=== PATIENT | female | born 1960 | race Caucasian/White ===

== ENCOUNTER 2017-11-04 08:56 | Day surgery (SDC) | payer BC ==
[2017-11-03 10:47] VITALS: BMI 29.5
[~2017-11-04 08:56] MED LIST: LACTATED RINGERS 1,000 ML IV SCH
[2017-11-04] MEDS ORDERED: LIDOCAINE 1% 20 ML VIAL (10MG/ML) FOR IV START INTRADERMA ONE (09:17)
[2017-11-04 09:26] VITALS: RESP 16; TEMP 98.6
[2017-11-04] MEDS ORDERED: GLYCOPYRROLATE 0.2 MG/ML 2 ML VIAL ONE (09:40)
[2017-11-04] MEDS ORDERED: PROPOFOL 10 MG/ML 20 ML VIAL IV ONE (09:40)
[2017-11-04] MEDS ORDERED: LIDOCAINE 1% INJ 10MG/ML (20 ML MDV) ONE (09:40)
--- NOTE | 2017-11-04 09:43 | P.GSHP ---
History of Present Illness H&P Date: 11/04/17 Chief Complaint: GERD This a 56-year-old female referred from Dr. Adam. Patient segments of GERD. She does today for EGD. She has a known history of a hiatal hernia. Her last EGD was over 5 years ago. Past Medical History Past Medical History: Asthma, GERD/Reflux, Hypertension Additional Past Medical History / Comment(s): spouse states "stomach problems" History of Any Multi-Drug Resistant Organisms: None Reported Past Surgical History: Uterine Ablation Additional Past Surgical History / Comment(s): nasal reconstruction Past Anesthesia/Blood Transfusion Reactions: No Reported Reaction Smoking Status: Never smoker - Past Family History Mother Family Medical History: Deep Vein Thrombosis (DVT) Medications and Allergies Home Medications Medication Instructions Recorded Confirmed Type Acetaminophen-Codeine 300-30mg 1 tab PO Q8H PRN 11/03/17 11/04/17 History [Tylenol #3] Ibuprofen 600 mg PO TID PRN 11/03/17 11/03/17 History Lisinopril 40 mg PO QAM 11/03/17 11/03/17 History Methocarbamol [Robaxin-750] 750 mg PO TID PRN 11/03/17 11/03/17 History Temazepam [Restoril] 15 mg PO HS PRN 11/03/17 11/03/17 History Allergies Allergy/AdvReac Type Severity Reaction Status Date / Time No Known Allergies Allergy Verified 11/03/17 10:39 Surgical - Exam Vital Signs Temp Pulse Resp BP Pulse Ox 98.6 F 71 16 175/94 98 11/04/17 09:21 11/04/17 09:21 11/04/17 09:21 11/04/17 09:21 11/04/17 09:21 - General well developed, no distress - Eyes PERRL - ENT normal pinna - Neck no masses - Respiratory normal expansion - Cardiovascular Rhythm: regular - Abdomen Abdomen: soft, non tender Assessment and Plan Assessment: GERD. We'll perform EGD.
--- NOTE | 2017-11-04 09:57 | P.OP ---
Date of Procedure: 11/04/17 Preoperative Diagnosis: GERD Postoperative Diagnosis: Antral gastritis Sliding hiatal hernia Mild esophagitis Procedure(s) Performed: EGD Anesthesia: MAC Surgeon: Adria Augustin Pathology: other (Antrum, esophagus) Condition: stable Disposition: PACU Description of Procedure: The patient's placed on the endoscopy table in the lateral position. She received IV sedation. The gastroscope placed oropharynx and passed in the esophagus and into the stomach. Scope was then placed through the pylorus. The first and second portion of the duodenum appeared normal. Scope was then brought back the antrum and this was mildly inflamed. A biopsies performed. The scope was retroflexed and remainder of the stomach appeared normal. There was a moderate size sliding hiatal hernia. The GE junction was at 38 cm. The distal esophagus was minimal inflamed and a biopsies performed. The proximal esophagus appeared normal. Scope was then withdrawn from patient.
[2017-11-04 09:58] VITALS: PULSE 81
[2017-11-04 10:17] VITALS: BP 177/97
== END 2017-11-04 10:48 | disposition home or self-care (01) ==
LOC: ORWHC2ENDO 08:56
PROVIDERS: ATTEND Surgery
DX: K29.50 Unspecified chronic gastritis without bleeding (principal); K44.9 Diaphragmatic hernia without obstruction or gangrene; K21.0 Gastro-esophageal reflux disease with esophagitis; J45.909 Unspecified asthma, uncomplicated; I10 Essential (primary) hypertension; Z79.899 Other long term (current) drug therapy
CPT/HCPCS: 43239; J2001; J2704; 88305; 88342

== ENCOUNTER → 2017-11-25 | Outpatient (CLI) | payer BC ==
[2017-11-25 14:01] LABS: Basophils # (A) 0.1 k/uL (0-0.2); Basophils % (A) 1 %; Eosinophils # (A) 0.1 k/uL (0-0.7); Eosinophils % (A) 2 %; HCT 41.8 % (34.0-46.0); HGB 14.4 gm/dL (11.4-16.0); Lymphocytes # (A) 1.5 k/uL (1.0-4.8); Lymphocytes % (A) 30 %; MCHC 34.6 g/dL (31.0-37.0); MCV 86.7 fL (80.0-100.0); Mean Platelet Volume 6.9; Monocytes # (A) 0.2 k/uL (0-1.0); Monocytes % (A) 4 %; Neutrophils # (A) 3.1 k/uL (1.3-7.7); Neutrophils % (A) 61 %; Platelet Count 304 k/uL (150-450); RBC 4.82 m/uL (3.80-5.40); RDW 12.8 % (11.5-15.5)
== END | disposition home or self-care (01) ==
LOC: LABPAT 13:22
PROVIDERS: ATTEND Surgery
DX: Z01.812 Encounter for preprocedural laboratory examination (principal); Z01.818 Encounter for other preprocedural examination; D64.9 Anemia, unspecified; K21.0 Gastro-esophageal reflux disease with esophagitis; R13.19 Other dysphagia; F17.200 Nicotine dependence, unspecified, uncomplicated
CPT/HCPCS: 36415; 85025; 86850; 86900; 86901; 93005

== ENCOUNTER 2017-12-01 07:47 | Inpatient (IN) | payer BC ==
[2017-11-21 16:16] VITALS: BMI 29.7
[~2017-12-01 07:47] MED LIST changes: +HEPARIN SODIUM,PORCINE 5,000 UNIT/ML 1 ML VIAL SQ ONE; +HYDROmorphone 0.5 MG/0.5 ML SYRINGE IVP PRN; +MORPHINE SULFATE 4 MG/ML SYRINGE IV PRN; +ONDANSETRON 4 MG/2 ML VIAL IVP PRN; +ceFAZolin IN SWFI 2 GM/20 ML SYRINGE IVP ONE
[2017-12-01] MEDS ORDERED: DEXAMETHASONE SOD PHOSPHATE 10 MG/ML 1 ML VIAL IV ONE (08:22)
[2017-12-01] MEDS ORDERED: SCOPOLAMINE 1.5MG/72HR PATCH TRANSDERM ONE (08:23)
--- NOTE | 2017-12-01 08:56 | P.GSHP ---
History of Present Illness H&P Date: 12/01/17 Chief Complaint: GERD This a 57-year-old female referred from Dr. Adam.The patient has had long- standing problems with reflux esophagitis. The patient underwent recent EGD is found have evidence of esophagitis. Patient has been well informed on the procedure of laparoscopic Chan fundoplication. The patient is aware the risk of the conversion to the open procedure, risk of injury to the stomach, liver and spleen. The patient is also a risk of recurrent GERD and dysphagia symptoms. The patient understands there is a postoperative diet of full liquids for 2 weeks after surgery. Past Medical History Past Medical History: Asthma, GERD/Reflux, Hypertension, Rheumatoid Arthritis ( RA) Additional Past Medical History / Comment(s): hiatal hernia History of Any Multi-Drug Resistant Organisms: None Reported Past Surgical History: Uterine Ablation Additional Past Surgical History / Comment(s): nasal reconstruction Past Anesthesia/Blood Transfusion Reactions: Family History of Problems w/ Anesthesia, Motion Sickness Additional Past Anesthesia/Blood Transfusion Reaction / Comment(s): "mom cant have anesthesia she stops breathing" Smoking Status: Never smoker - Past Family History Mother Family Medical History: Deep Vein Thrombosis (DVT) Father Family Medical History: Cancer Additional Family Medical History / Comment(s): throat cancer Sister(s) Family Medical History: Cancer Additional Family Medical History / Comment(s): ovarian cancer Medications and Allergies Home Medications Medication Instructions Recorded Confirmed Type Acetaminophen-Codeine 300-30mg 1 tab PO Q8H PRN 11/03/17 12/01/17 History [Tylenol #3] Ibuprofen 600 mg PO TID PRN 11/03/17 12/01/17 History Lisinopril 40 mg PO QAM 11/03/17 12/01/17 History Methocarbamol [Robaxin-750] 750 mg PO TID PRN 11/03/17 11/21/17 History Temazepam [Restoril] 15 mg PO HS PRN 11/03/17 11/21/17 History Albuterol Inhaler [Ventolin Hfa 1 - 2 puff INHALATION Q6HR PRN 11/21/17 History Inhaler] Ergocalciferol (Vitamin D2) 50,000 unit PO Q14D 11/21/17 12/01/17 History [Vitamin D2] Estradiol [Yuvafem] 10 mcg VG MOTH 11/21/17 11/21/17 History Multivitamins, Thera [Multivitamin 1 tab PO DAILY 11/21/17 11/21/17 History (formulary)] Allergies Allergy/AdvReac Type Severity Reaction Status Date / Time No Known Allergies Allergy Verified 12/01/17 08:13 Surgical - Exam Vital Signs Temp Pulse Resp BP Pulse Ox 97.7 F 79 16 166/90 97 12/01/17 08:24 12/01/17 08:24 12/01/17 08:24 12/01/17 08:24 12/01/17 08:24 - General well developed, no distress - Eyes PERRL - ENT normal pinna - Neck no masses - Respiratory normal expansion - Cardiovascular Rhythm: regular - Abdomen Abdomen: soft, non tender Assessment and Plan Assessment: GERD. We'll perform laparoscopic Chan fundal plication.
[2017-12-01] MEDS ORDERED: BUPIVACAINE (PF) 0.25% 30 ML VIAL SQ ONE ×2 (09:11→09:40)
[2017-12-01] MEDS ORDERED: NEOSTIGMINE 1 MG/ML 10 ML VIAL ONE (09:19)
[2017-12-01] MEDS ORDERED: KETOROLAC 30 MG/ML 1 ML VIAL ONE (09:19)
[2017-12-01] MEDS ORDERED: ROCURONIUM BROMIDE 10 MG/ML 10 ML VIAL IV ONE (09:19)
[2017-12-01] MEDS ORDERED: fentaNYL (PF) 50 MCG/ML 2 ML AMP ONE (09:19)
[2017-12-01] MEDS ORDERED: LIDOCAINE 1% INJ 10MG/ML (20 ML MDV) ONE (09:19)
[2017-12-01] MEDS ORDERED: MIDAZOLAM 2 MG/2 ML VIAL ONE (09:19)
[2017-12-01] MEDS ORDERED: MORPHINE SULFATE 10 MG/ML SYRINGE ONE (09:19)
[2017-12-01] MEDS ORDERED: PROPOFOL 10 MG/ML 20 ML VIAL IV ONE (09:19)
[2017-12-01] MEDS ORDERED: ePHEDrine SULFATE/0.9% NACL/PF 50 MG/5 ML SYRINGE IV ONE (09:19)
[2017-12-01] MEDS ORDERED: GLYCOPYRROLATE 0.2 MG/ML 2 ML VIAL ONE (09:19)
[2017-12-01] MEDS ORDERED: LACTATED RINGERS 1,000 ML IV ONE (10:26)
[2017-12-01] MEDS: MEPERIDINE 50 MG/ML SYRINGE IVP ONE ×2 (10:41→10:49)
[2017-12-01] MEDS ORDERED: diphenhydrAMINE 50 MG/ML 1 ML VIAL IVP ONE (10:48)
[2017-12-01] MEDS ORDERED: ONDANSETRON 4 MG/2 ML VIAL IVP PRN (11:32)
[2017-12-01] MEDS ORDERED: ALBUTEROL NEBULIZED 2.5 MG/3 ML INHALATION PRN (12:06)
[2017-12-01] MEDS ORDERED: TEMAZEPAM 15 MG CAP PO PRN (12:06)
[2017-12-01] MEDS: MORPHINE SULFATE/PF 10MG/10ML VL IVP PRN ×3 (13:02→20:40)
[2017-12-01] MEDS: LISINOPRIL 20 MG TAB PO SCH (13:50)
[2017-12-01] MEDS: D5-0.45% NACL WITH KCL 20MEQ/L 1,000 ML IV SCH ×2 (13:52→21:29)
--- NOTE | 2017-12-01 14:58 | FL ---
EXAMINATION TYPE: FL esophagus cervic/pharynx DATE OF EXAM: 12/01/2017 HISTORY: Post Edil fundoplasty COMPARISON: NONE TECHNIQUE: A double contrast esophagram is performed utilizing air and barium. FINDINGS: There is postoperative change of the GE junction. There is free air within the abdomen. Bashir gical clips in the gallbladder fossa. Air-filled and distended stomach is noted. Contrast passes acro ss the GE junction with no obstruction or extravasation. There is a somewhat prominent pouch distal t o the GE junction and evidence of twisting or volvulus of the portion of the upper gastric fundus. A small amount of contrast does pass into the small bowel. Fluoroscopy time: 1 minute 19 seconds. IMPRESSION: Postsurgical change. Below the level of surgery there is a twisting or volvulus of the stomach small bowel and contrast does pass into the small bowel. Report immediately called to the lakshmi pradhan's nurse.
--- NOTE | 2017-12-01 15:58 | P.CONS ---
History of Present Illness - Chief Complaint GERD - History of Present Illness This is a 57-year-old female, well-known to Dr. dAam. She has a long history of GERD, has been on PPI's with no relief. She also has a medical history of asthma, hypertension, and rheumatoid arthritis. Today the patient underwent a laparoscopic Edil fundoplication with Dr. Augustin. Upon evaluation she was in quite a bit of pain. She does have morphine and Tylenol 3 ordered for pain control. She was also hypertensive, partially due to her pain.otherwise the patient is stable. Review of Systems Constitutional: Denies chills, Denies fatigue, Denies fever Ears, nose, mouth and throat: Denies epistaxis, Denies headache, Denies hoarseness, Denies nasal congestion Cardiovascular: Reports high blood pressure, Denies dyspnea on exertion, Denies irregular heart beat, Denies orthopnea, Denies palpitations, Denies shortness of breath, Denies syncope Respiratory: Denies congestion, Denies cough, Denies pain, Denies wheezing Gastrointestinal: Reports heartburn, Denies change in bowel habits, Denies constipation, Denies loss of appetite, Denies nausea, Denies vomiting Genitourinary: Denies kidney stones, Denies urgency, Denies urinary frequency Musculoskeletal: Denies frequent falls, Denies gait dysfunction, Denies leg numbness/tingling, Denies low back pain, Denies neck pain Integumentary: Denies lesions, Denies sores, Denies wounds Neurological: Denies memory loss, Denies numbness, Denies paresthesias, Denies seizures, Denies syncope, Denies visual changes Psychiatric: Denies confusion, Denies insomnia, Denies irritability Endocrine: Denies fatigue, Denies palpitations Hematologic/Lymphatic: Denies easy bleeding, Denies lymphadenopathy, Denies thrombophilia Past Medical History Past Medical History: Asthma, GERD/Reflux, Hypertension, Rheumatoid Arthritis ( RA) Additional Past Medical History / Comment(s): hiatal hernia History of Any Multi-Drug Resistant Organisms: None Reported Past Surgical History: Uterine Ablation Additional Past Surgical History / Comment(s): nasal reconstruction Past Anesthesia/Blood Transfusion Reactions: Family History of Problems w/ Anesthesia, Motion Sickness Additional Past Anesthesia/Blood Transfusion Reaction / Comm: "mom cant have anesthesia she stops breathing" Past Psychological History: No Psychological Hx Reported Smoking Status: Never smoker Past Alcohol Use History: Rare Past Drug Use History: None Reported - Past Family History Mother Family Medical History: Deep Vein Thrombosis (DVT) Father Family Medical History: Cancer Additional Family Medical History / Comment(s): throat cancer Sister(s) Family Medical History: Cancer Additional Family Medical History / Comment(s): ovarian cancer Medications and Allergies Home Medications Medication Instructions Recorded Confirmed Type Acetaminophen-Codeine 300-30mg 1 tab PO Q8H PRN 11/03/17 12/01/17 History [Tylenol #3] Ibuprofen 600 mg PO TID PRN 11/03/17 12/01/17 History Lisinopril 40 mg PO QAM 11/03/17 12/01/17 History Methocarbamol [Robaxin-750] 750 mg PO TID PRN 11/03/17 12/01/17 History Temazepam [Restoril] 15 mg PO HS PRN 11/03/17 12/01/17 History Albuterol Inhaler [Ventolin Hfa 1 - 2 puff INHALATION RT-Q6H PRN 11/21/17 History Inhaler] Ergocalciferol (Vitamin D2) 50,000 unit PO Q14D 11/21/17 12/01/17 History [Vitamin D2] Estradiol [Yuvafem] 10 mcg VG MOTH 11/21/17 12/01/17 History Multivitamins, Thera [Multivitamin 1 tab PO DAILY 11/21/17 12/01/17 History (formulary)] Allergies Allergy/AdvReac Type Severity Reaction Status Date / Time No Known Allergies Allergy Verified 12/01/17 12:19 Physical Exam Vitals: Vital Signs Temp Pulse Pulse Resp BP Pulse Ox 12/01/17 13:16 108 H 20 158/84 96 12/01/17 12:40 101 H 20 173/86 97 12/01/17 12:25 100 20 171/94 98 12/01/17 12:10 98 20 173/87 99 12/01/17 11:55 96.7 F L 94 20 169/95 99 12/01/17 11:30 74 18 162/79 98 12/01/17 11:15 62 18 170/73 95 12/01/17 11:00 69 18 174/80 100 12/01/17 10:46 94 18 184/78 100 12/01/17 10:31 97.8 F 84 14 177/82 100 12/01/17 09:15 16 154/82 98 12/01/17 08:24 97.7 F 79 16 166/90 97 Intake and Output 12/01/17 12/01/17 12/01/17 06:59 14:59 22:59 Intake Total 1400 Output Total 5 Balance 1395 Intake: IV 1400 Output: Estimated Blood Loss 5 Other: # Voids 2 - Constitutional General appearance: cooperative, no acute distress - EENT Eyes: PERRLA ENT: hearing grossly normal - Neck Neck: no lymphadenopathy, normal ROM, no thyromegaly Carotids: bilateral: upstroke normal Thyroid: bilateral: normal size, negative: enlarged, nodule - Respiratory Respiratory: bilateral: CTA, negative: diminished, rales, rhonchi, wheezing - Cardiovascular Rhythm: regular Heart sounds: normal: S1, S2 - Gastrointestinal General gastrointestinal: normal bowel sounds, soft, tenderness - Musculoskeletal Musculoskeletal: strength equal bilaterally - Psychiatric Psychiatric: A&O x's 3 Assessment and Plan Plan: 1.GERD status post laparoscopic Edil fundoplication postop day 1. continue with morphine and Tylenol 3 for pain control, will continue with clear liquid diet.will watch for any postoperative consultations. 2. hypertension. will continue with lisinopril 40 mg. 3. insomnia. Continue Restoril 50 mg at at bedtime. 4. DVT prophylaxis continue with Lovenox 5. GI prophylaxis continue Pepcid 6. asthma. Continue albuterol as needed The above impression and plan of care have been discussed and directed by signing physician. Carolin Pandya nurse practitioner acting as scribe for signing physician.
[2017-12-01] MEDS: amLODIPine 10 MG TAB PO SCH (17:25)
[2017-12-01] MEDS: FAMOTIDINE 20 MG/2 ML VIAL IV SCH (20:40)
[2017-12-02] MEDS: MORPHINE SULFATE/PF 10MG/10ML VL IVP PRN ×2 (01:07→05:06)
[2017-12-02] MEDS: D5-0.45% NACL WITH KCL 20MEQ/L 1,000 ML IV SCH ×3 (05:06→23:40)
[2017-12-02] MEDS: amLODIPine 10 MG TAB PO SCH (08:24)
[2017-12-02] MEDS: ENOXAPARIN 40 MG/0.4 ML SYRINGE SQ SCH (08:24)
[2017-12-02] MEDS: LISINOPRIL 20 MG TAB PO SCH (08:24)
[2017-12-02] MEDS: FAMOTIDINE 20 MG/2 ML VIAL IV SCH ×2 (08:24→21:25)
[2017-12-02] MEDS: Acetaminophen-Codeine 300-30mg TAB PO PRN ×2 (09:52→17:49)
--- NOTE | 2017-12-02 11:09 | P.PN ---
Subjective Progress Note Date: 12/02/17 57-year-old seen at bedside. Patient is then up ambulating in the hallway states tolerating clear liquid diet. Reports no difficulty in swallowing no nausea vomiting. Status post 02 of December laparoscopic Niesen fundoplication for symptomatic esophageal reflux symptoms Patient did have a esophagram done yesterday it showed below the level of surgery there was a twisting or volvulus of the stomach small bowel. Contrast does pass into the small bowel Objective - Vital Signs Vital signs: Vital Signs Temp 97.8 F 12/02/17 08:01 Pulse 69 12/02/17 08:01 Resp 18 12/02/17 08:01 BP 152/93 12/02/17 08:01 Pulse Ox 99 12/02/17 08:01 Intake & Output 12/01/17 12/02/17 12/02/17 18:59 06:59 18:59 Intake Total 1600 250 Output Total 5 Balance 1595 250 Weight 88.904 kg Intake: IV 1400 Oral 200 250 Output: Estimated Blood Loss 5 Other: # Voids 2 - Exam Exam 57-year-old female ambulating in the hallway no dizziness or lightheadedness Lungs adequate air movement bilaterally no cough Heart S1-S2 audible regular Abdomen surgical dressing sites dry soft nondistended bowel tones present states tolerating a diet no nausea no vomiting no difficulty in swallowing Extremities no edema Assessment and Plan Assessment: Impression Long-standing symptoms reflex esophagitis failed outpatient treatment A recent EGD showing evidence of esophagitis Status post laparoscopic Chan fundoplication for symptomatic esophageal reflux symptoms Postop esophagram evidence of twisting or volvulus of the stomach small bowel Plan Full liquid diet Prepped for probable discharge tomorrow if tolerating full liquid diet Continue postop surgical shelter meds as appropriate The above impression and plan of care have been discussed and directed by signing physician. Lucy Cisse nurse practitioner acting as scribe for signing physician.
[2017-12-02 11:32] LABS: Anion Gap 9 mmol/L; Blood Urea Nitrogen 10 mg/dL (7-17); Calcium 9.1 mg/dL (8.4-10.2); Carbon Dioxide 29 mmol/L (22-30); Chloride 104 mmol/L (98-107); Glucose 89 mg/dL (74-99); Potassium 4.3 mmol/L (3.5-5.1); Sodium 142 mmol/L (137-145)
[2017-12-02] MEDS: MULTIVITAMINS, THERA 1 EACH TAB PO SCH (15:18)
[2017-12-02] MEDS: HYDROCHLOROTHIAZIDE 12.5 MG CAP PO SCH (15:18)
[2017-12-03] MEDS: Acetaminophen-Codeine 300-30mg TAB PO PRN ×2 (01:50→10:03)
[2017-12-03] MEDS: MORPHINE SULFATE/PF 10MG/10ML VL IVP PRN (06:16)
[2017-12-03] MEDS: ENOXAPARIN 40 MG/0.4 ML SYRINGE SQ SCH (08:25)
[2017-12-03] MEDS: LISINOPRIL 20 MG TAB PO SCH (08:26)
[2017-12-03] MEDS: MULTIVITAMINS, THERA 1 EACH TAB PO SCH (08:27)
[2017-12-03] MEDS: amLODIPine 10 MG TAB PO SCH (08:27)
[2017-12-03] MEDS: FAMOTIDINE 20 MG/2 ML VIAL IV SCH (08:27)
[2017-12-03] MEDS: HYDROCHLOROTHIAZIDE 12.5 MG CAP PO SCH (08:36)
[2017-12-03] MEDS: D5-0.45% NACL WITH KCL 20MEQ/L 1,000 ML IV SCH (08:37)
--- NOTE | 2017-12-03 10:57 | P.DS ---
Providers Date of admission: 12/01/17 07:47 Expected date of discharge: 12/03/17 Attending physician: Adria Augustin Consults: 12/01/17 11:32 Consult Physician Routine Consulting Provider: Andrew Adam Reason/Comments: Medical management Do you want consulting provider notified?: Yes Primary care physician: Andrew Adam [facility] Course: A 57-year-old female presented on an elective basis to undergo laparoscopic Chan fundoplication for symptomatic reflux esophagitis. Patient recently underwent an EGD which found evidence of esophagitis esophagram done it showed below the level of surgery there was a twisting or volvulus of the stomach small bowel. Contrast does pass into the small bowel Status post 02 of December laparoscopic Niesen fundoplication for symptomatic esophageal reflux symptoms On the day of discharge patient was up ambulatory on the unit tolerating a full liquid diet. No difficulty in swallowing was felt to be appropriate to be discharged home Impression Long-standing symptoms reflex esophagitis failed outpatient treatment A recent EGD showing evidence of esophagitis Status post laparoscopic Chan fundoplication for symptomatic esophageal reflux symptoms Postop esophagram evidence of twisting or volvulus of the stomach small bowel The above impression and plan of care have been discussed and directed by signing physician. Lucy Cisse nurse practitioner acting as scribe for signing physician. Plan - Discharge Summary Discharge Rx Participant: Yes New Discharge Prescriptions: New amLODIPine [Norvasc] 10 mg PO DAILY #30 tab Hydrochlorothiazide [Hydrodiuril] 12.5 mg PO DAILY #30 cap Continue Temazepam [Restoril] 15 mg PO HS PRN PRN Reason: sleep Lisinopril 40 mg PO QAM Methocarbamol [Robaxin-750] 750 mg PO TID PRN PRN Reason: Pain Ibuprofen 600 mg PO TID PRN PRN Reason: Pain Acetaminophen-Codeine 300-30mg [Tylenol w/codeine #3] 1 tab PO Q8H PRN PRN Reason: Pain Multivitamins, Thera [Multivitamin (formulary)] 1 tab PO DAILY Ergocalciferol (Vitamin D2) [Vitamin D2] 50,000 unit PO Q14D Estradiol [Yuvafem] 10 mcg VG MOTH Albuterol Inhaler [Ventolin Hfa Inhaler] 1 - 2 puff INHALATION RT-Q6H PRN PRN Reason: Dyspnea Discharge Medication List Acetaminophen-Codeine 300-30mg [Tylenol w/codeine #3] 1 tab PO Q8H PRN 11/03/17 [History] Ibuprofen 600 mg PO TID PRN 11/03/17 [History] Lisinopril 40 mg PO QAM 11/03/17 [History] Methocarbamol [Robaxin-750] 750 mg PO TID PRN 11/03/17 [History] Temazepam [Restoril] 15 mg PO HS PRN 11/03/17 [History] Albuterol Inhaler [Ventolin Hfa Inhaler] 1 - 2 puff INHALATION RT-Q6H PRN [History] Ergocalciferol (Vitamin D2) [Vitamin D2] 50,000 unit PO Q14D 11/21/17 [History] Estradiol [Yuvafem] 10 mcg VG MOTH 11/21/17 [History] Multivitamins, Thera [Multivitamin (formulary)] 1 tab PO DAILY 11/21/17 [History ] Hydrochlorothiazide [Hydrodiuril] 12.5 mg PO DAILY #30 cap 12/03/17 [Rx] amLODIPine [Norvasc] 10 mg PO DAILY #30 tab 12/03/17 [Rx] Follow up Appointment(s)/Referral(s): Adria Augustin MD [STAFF PHYSICIAN] - 1 Week Patient Instructions/Handouts: Adult Laparoscopic Chan Fundoplication (DC) Activity/Diet/Wound Care/Special Instructions: Patient is to maintain a full liquid diet for 2 weeks post procedure Discharge Disposition: HOME SELF-CARE
[2017-12-03] MEDS ORDERED: ONDANSETRON 4 MG TAB PO PRN (12:12)
[2017-12-03] MEDS ORDERED: ONDANSETRON 4 MG TAB PO STA (12:25)
[2017-12-03 14:27] VITALS: TEMP 97.4
[2017-12-03 15:27] VITALS: BP 131/71; PULSE 82; RESP 18
[2017-12-03] MEDS ORDERED: HYDROmorphone 4 MG TABLET PO PRN (15:27)
--- NOTE | 2017-12-04 14:23 | P.PN ---
Subjective Progress Note Date: 12/03/17 This is a 57-year-old female, well-known to Dr. Adam. She has a long history of GERD, has been on PPI's with no relief. She also has a medical history of asthma, hypertension, and rheumatoid arthritis. Today the patient underwent a laparoscopic Edil fundoplication with Dr. Augustin. Upon evaluation she was in quite a bit of pain. She does have morphine and Tylenol 3 ordered for pain control. She was also hypertensive, partially due to her pain.otherwise the patient is stable. Norvasc 10 mg added for her hypertension Patient encouraged to do incentive spirometer 10 times every hour while awake 12/03: Patient's blood pressure remains elevated and she has been added on Norvasc and hydrochlorothiazide. These prescriptions will be sent to her pharmacy and patient is been instructed to take these until she follows up with Dr. Adam. Patient is scheduled for discharge home today. Patient has been ambulatory in the hallway without chest pain, shortness of breath lightheadedness or dizziness. Patient is tolerating full liquid diet. No nausea or vomiting. Objective - Vital Signs Vital signs: Vital Signs Temp 98.1 F 12/03/17 08:13 Pulse 77 12/03/17 08:13 Resp 19 12/03/17 08:13 BP 179/101 12/03/17 08:13 Pulse Ox 98 12/03/17 08:13 Intake & Output 12/02/17 12/03/17 12/03/17 18:59 06:59 18:59 Intake Total 930 Balance 930 Intake: Oral 930 Other: # Voids 2 1 1 # Bowel Movements 1 1 - Exam General appearance: cooperative, no acute distress - EENT Eyes: PERRLA ENT: hearing grossly normal - Neck Neck: no lymphadenopathy, normal ROM, no thyromegaly Carotids: bilateral: upstroke normal Thyroid: bilateral: normal size, negative: enlarged, nodule - Respiratory Respiratory: bilateral: CTA, negative: diminished, rales, rhonchi, wheezing - Cardiovascular Rhythm: regular Heart sounds: normal: S1, S2 - Gastrointestinal General gastrointestinal: normal bowel sounds, soft, tenderness - Musculoskeletal Musculoskeletal: strength equal bilaterally - Psychiatric Psychiatric: A&O x's 3 - Labs CBC & Chem 7: 12/02/17 10:58 Assessment and Plan Plan: 1.GERD status post laparoscopic Edil fundoplication postop day 1. continue with morphine and Tylenol 3 for pain control, will continue with clear liquid diet.will watch for any postoperative consultations. 2. hypertension. continue with lisinopril 40 mg and added in Norvasc and hydrochlorothiazide. 3. insomnia. Continue Restoril 50 mg at at bedtime. 4. DVT prophylaxis continue with Lovenox 5. GI prophylaxis continue Pepcid 6. asthma. Continue albuterol as needed Impression and plan of care have been directed as dictated by the signing physician. Saira Serna nurse practitioner acting as scribe for signing physician.
--- NOTE | 2017-12-25 11:02 | P.OP ---
Date of Procedure: 12/25/17 Preoperative Diagnosis: GERD Postoperative Diagnosis: GERD Procedure(s) Performed: Laparoscopic Chan fundoplication with mesh repair of hiatal hernia Anesthesia: PATRICIA Surgeon: Adria Augustin Estimated Blood Loss (ml): 5 Pathology: none sent Condition: stable Disposition: PACU Description of Procedure: The patient was placed on the operating table in the supine position. She received general anesthesia. She was then placed in dorsal lithotomy position. Her abdomen was prepped and draped in the usual sterile fashion. The skin incision sites were anesthetized with 1% local Xylocaine. The skin was incised in the left periumbilical area with an 11 scalpel. Using a 5 mm blade was trocar under direct visitation the peritoneal cavity was entered. And then insufflated. After adequate insufflation the laparoscope was placed back into the peritoneal cavity. Next a 5 mm trocar was placed in the right epigastric and then the right lateral position. Another 5 mm trochars placed in the left lateral position. Another 5 mm trocar placed in the left epigastric position. And the original left periumbilical trocar was exchanged for a 10 mm trocar. The left lateral lobe liver was retracted. The patient had a large hiatal hernia. Using the Harmonic scissors the crural defect was dissected in the Harmonic scissors were used to dissect the hiatal hernia sac. The fundus of the stomach was completely mobilized by using the Harmonic scissors to divide short gastric vessels. The stomach was reduced into the peritoneal cavity. The crura was dissected with the Harmonic scissors. And then the crural repair was performed using 2-0 Ethibond suture. The [place] bio A mesh was then placed over top of the repair and secured with 2-0 Ethibond suture. Next a 58-Chinese bougie dilator was placed the patient's oral pharynx and into the esophagus into the stomach by the [employer]. The fundoplication was then performed using 2-0 Ethibond suture. A 360 fundoplication was performed. At this point the dilator was withdrawn. The stomach and esophagus were inspected there is known to any injury to the stomach or esophagus. The abdomen was irrigated there is no bleeding seen. The trochars are withdrawn. Skin was closed interrupted 3-0 Monocryl suture. Dermabond was applied. Patient tolerated procedure well and was sent to recovery in stable condition.
== END 2017-12-03 15:00 | disposition home or self-care (01) | DRG 328 ==
LOC: 2ORMAIN 07:47 → 6PED 10:21
PROVIDERS: ADMIT Surgery; ATTEND Surgery
PROC: 0BUT4JZ Supplement Diaphragm with Synthetic Substitute, Percutaneous Endoscopic Approach (ICD-10-PCS; 2017-12-01)
PROC: 0DV44ZZ Restriction of Esophagogastric Junction, Percutaneous Endoscopic Approach (ICD-10-PCS; principal; 2017-12-01 09:20)
DX: K21.0 Gastro-esophageal reflux disease with esophagitis (principal); G47.00 Insomnia, unspecified; I10 Essential (primary) hypertension; J45.909 Unspecified asthma, uncomplicated; M06.9 Rheumatoid arthritis, unspecified; K44.9 Diaphragmatic hernia without obstruction or gangrene; K31.89 Other diseases of stomach and duodenum; Z79.899 Other long term (current) drug therapy
CPT/HCPCS: 74210; 80048; 86850; 86900; 86901

== ENCOUNTER 2021-05-22 02:50 | Emergency (ER) | payer BC, OTHER ==
[2021-05-22 03:09] VITALS: BP 160/95; PULSE 80; RESP 16; TEMP 97.5
[2021-05-22] MEDS ORDERED: KETOROLAC 15 MG/ML 1 ML VIAL IM STA (03:15)
[2021-05-22] MEDS ORDERED: ACETAMINOPHEN TAB 500 MG TAB PO STA (03:15)
--- NOTE | 2021-05-22 03:20 | ED ---
Fall HPI - General Chief Complaint: Fall Stated Complaint: Fall, [facility] Time Seen by Provider: 05/22/21 03:10 Source: patient Mode of arrival: ambulatory - History of Present Illness Initial Comments: 60 year-old female patient presents to the emergency department for evaluation of pain to the right ankle, low back, and left buttock after a slip and fall at work. Patient states she was walking, slipped and fell landing on her buttocks. States she hit her ankle and right knee on a dryer. States injury occurred around 1:30am. States she is having a pinching sensation to her back and left buttock and hip. Denies radiating pain down the legs. Denies any saddle anesthesia or loss of bowel or bladder control. States that as time went on the pain to her right ankle worsened. She is able to bear weight. States right knee pain resolved. She did not hit her head with the fall. States her neck feels stiff but she did not strike it on anything. Denies numbness, tingling, or pain down the arms. Denies taking anything for pain. - Related Data Home Medications Medication Instructions Recorded Confirmed Acetaminophen-Codeine 300-30mg 1 tab PO Q8H PRN 11/03/17 12/01/17 [Tylenol w/codeine #3] Ibuprofen 600 mg PO TID PRN 11/03/17 12/01/17 Methocarbamol [Robaxin-750] 750 mg PO TID PRN 11/03/17 12/01/17 Temazepam [Restoril] 15 mg PO HS PRN 11/03/17 12/01/17 lisinopriL 40 mg PO QAM 11/03/17 12/01/17 Albuterol Inhaler (Mhu) [Ventolin 1 - 2 puff INHALATION RT-Q6H PRN 11/21/17 12/01/17 Hfa Inhaler (Mhu)] Ergocalciferol (Vitamin D2) 50,000 unit PO Q14D 11/21/17 12/01/17 [Vitamin D2] Estradiol [Yuvafem] 10 mcg VG MOTH 11/21/17 12/01/17 Multivitamins, Thera [Multivitamin 1 tab PO DAILY 11/21/17 12/01/17 (formulary)] Previous Rx's Medication Instructions Recorded amLODIPine [Norvasc] 10 mg PO DAILY #30 tab 12/03/17 hydroCHLOROthiazide [Hydrodiuril] 12.5 mg PO DAILY #30 cap 12/03/17 Ibuprofen [Motrin] 600 mg PO Q8HR PRN #30 tab 05/22/21 Allergies Allergy/AdvReac Type Severity Reaction Status Date / Time No Known Allergies Allergy Verified 05/22/21 03:05 Review of Systems ROS Statement: Those systems with pertinent positive or pertinent negative responses have been documented in the HPI. ROS Other: All systems not noted in ROS Statement are negative. Past Medical History Past Medical History: Asthma, GERD/Reflux, Hypertension, Rheumatoid Arthritis (RA) Additional Past Medical History / Comment(s): hiatal hernia History of Any Multi-Drug Resistant Organisms: None Reported Past Surgical History: Hernia Repair, Uterine Ablation Additional Past Surgical History / Comment(s): nasal reconstruction Past Anesthesia/Blood Transfusion Reactions: Family History of Problems w/ Anesthesia, Motion Sickness Additional Past Anesthesia/Blood Transfusion Reaction / Comment(s): "mom cant have anesthesia she stops breathing" Past Psychological History: No Psychological Hx Reported Smoking Status: Never smoker Past Alcohol Use History: Rare Past Drug Use History: None Reported - Past Family History Mother Family Medical History: Deep Vein Thrombosis (DVT) Father Family Medical History: Cancer Additional Family Medical History / Comment(s): throat cancer Sister(s) Family Medical History: Cancer Additional Family Medical History / Comment(s): ovarian cancer General Exam Limitations: no limitations General appearance: alert, in no apparent distress, other (This is a well- developed, well-nourished adult female patient in no acute distress. Vital signs upon presentation temperature 97.5F, pulse 80, respirations 16, blood pressure 160/95, pulse ox 97% on room air.) Head exam: Present: atraumatic, normocephalic, normal inspection Eye exam: Present: normal appearance, PERRL, EOMI. Absent: scleral icterus, conjunctival injection, nystagmus, periorbital swelling ENT exam: Present: normal exam, normal oropharynx, mucous membranes moist Neck exam: Present: normal inspection, full ROM, other (Nontender, no step-off, no deformity to firm midline palpation of the posterior cervical spine. Full range of motion without pain or limitation.). Absent: tenderness, meningismus, lymphadenopathy Respiratory exam: Present: normal lung sounds bilaterally. Absent: respiratory distress, wheezes, rales, rhonchi, stridor Cardiovascular Exam: Present: regular rate, normal rhythm, normal heart sounds. Absent: systolic murmur, diastolic murmur, rubs, gallop, clicks GI/Abdominal exam: Present: soft, normal bowel sounds. Absent: distended, tenderness, guarding, rebound, rigid Extremities exam: Present: normal inspection, full ROM, normal capillary refill, other (Tenderness over the right lateral ankle. Skin to the lower legs is pink, warm, dry. Cap refill less than 3 seconds. Pedal and posttibial pulses are 2+.). Absent: tenderness, pedal edema, joint swelling, calf tenderness Back exam: Present: normal inspection, vertebral tenderness (Lumbar) Neurological exam: Present: alert, oriented X3, CN II-XII intact Psychiatric exam: Present: normal affect, normal mood Skin exam: Present: warm, dry, intact, normal color. Absent: rash Course Vital Signs 05/22/21 03:06 Temperature 97.5 F L Pulse Rate 80 Respiratory 16 Rate Blood Pressure 160/95 O2 Sat by Pulse 97 Oximetry Medical Decision Making - Medical Decision Making 60-year-old female patient presented to the emergency department today for evaluation of right ankle low back, and left buttock pain after a slip and fall at work. Physical examination did reveal tenderness over the lower lumbar spine. Tenderness over the right lateral ankle. She is neurovascularly intact. Neurologically intact without deficits. No concerning symptoms for cauda equ darrian. X-rays of the right ankle, low back, hip and pelvis were obtained and were all negative for any fractures. Did discuss contusion and strain as a cause for her symptoms. She'll be discharged with ibuprofen for pain control. She is instructed to alternate ice and heat to the area. We will keep her off work tonight however return tomorrow night. She is instructed to follow-up with employee health services if her symptoms do not improve or she is unable to perform the duties of her job. Return parameters were discussed in detail. She verbalizes understanding and agrees with this plan. Case discussed with my attending Dr. Byers. - Radiology Data Radiology results: report reviewed, image reviewed 3 views of the right ankle were obtained. Report reviewed in its entirety. Impression by Dr. Taylor shows calcaneal spurring. No fracture. 3 views of the pelvis and left hip are obtained. Report was reviewed in its entirety. Impression by Dr. Taylor shows negative pelvis and left hip exam. Disposition Clinical Impression: Low back strain, Contusion of right leg Disposition: HOME SELF-CARE Condition: Good Instructions (If sedation given, give patient instructions): Low Back Strain (ED), Contusion in Adults (ED) Additional Instructions: Take medication as directed for pain control. Alternate ice and heat to the area. Perform gentle range of motion exercises. Follow-up the primary care physician or employee health services for further evaluation as soon as possible. Return for any new, worsening, or concerning symptoms. Prescriptions: Ibuprofen [Motrin] 600 mg PO Q8HR PRN #30 tab PRN Reason: Pain Is patient prescribed a controlled substance at d/c from ED?: No Referrals: Andrew Adam MD [Primary Care Provider] - 1-2 days Time of Disposition: 03:56
--- NOTE | 2021-05-22 03:40 | XR ---
EXAMINATION TYPE: XR ankle complete RT DATE OF EXAM: 05/22/2021 COMPARISON: NONE HISTORY: Ankle pain TECHNIQUE: 3 views FINDINGS: There is no sign of fracture nor dislocation. Joint spaces are normal. There is plantar lizett caneal spurring. IMPRESSION: Calcaneal spurring. No fracture.
--- NOTE | 2021-05-22 03:42 | XR ---
EXAMINATION TYPE: XR Hip LT and AP Pelvis DATE OF EXAM: 05/22/2021 COMPARISON: NONE HISTORY: Left hip pain TECHNIQUE: 3 views FINDINGS: Pelvic ring is intact. Proximal left femur and hip joint appear intact. There is no hip dys plasia. Hip joint space is fairly normal. Sacroiliac joints appear intact. IMPRESSION: Negative pelvis and left hip exam.
--- NOTE | 2021-05-22 03:50 | XR ---
EXAMINATION TYPE: XR lumbosacral spine min 4V DATE OF EXAM: 05/22/2021 COMPARISON: NONE HISTORY: Low back pain TECHNIQUE: 5 views FINDINGS: Lumbar vertebra have fairly normal alignment. There is some degenerative disc space narrowi ng in the mid and lower lumbar spine. There is no compression fracture. There is a few millimeter ant erior subluxation of L4 in relation L5. There is no spondylolysis. Sacroiliac joints are intact. IMPRESSION: There is a degenerative first-degree L4-5 spondylolisthesis. No compression fracture. Deg enerative disc narrowing in the lower lumbar spine.
== END 2021-05-22 04:40 | disposition home or self-care (01) ==
LOC: EC 02:50
DX: S39.012A Strain of muscle, fascia and tendon of lower back, initial encounter (principal); S80.11XA Contusion of right lower leg, initial encounter; I10 Essential (primary) hypertension; J45.909 Unspecified asthma, uncomplicated; K21.9 Gastro-esophageal reflux disease without esophagitis; M06.9 Rheumatoid arthritis, unspecified; Z79.1 Long term (current) use of non-steroidal anti-inflammatories (NSAID); Z79.51 Long term (current) use of inhaled steroids; W01.0XXA Fall on same level from slipping, tripping and stumbling without subsequent striking against object, initial encounter; Y99.0 Civilian activity done for income or pay; Y93.01 Activity, walking, marching and hiking
CPT/HCPCS: 72110; 73502; 73610; 99284; 96372; J1885